=== PATIENT | female | born 1995 | race Caucasian/White ===

== ENCOUNTER 2017-08-07 09:49 | Emergency (ER) | payer SELFPAY ==
[~2017-08-07] VITALS: Wt 75.0 kg
[2017-08-07] MEDS ORDERED: ONDANSETRON (ODT) 4 MG TAB ODT STA (10:55)
[2017-08-07 11:43] LABS: ADD UMIC YES; UR ASCORBIC ACID NEGATIVE (NEGATIVE); UR BILIRUBIN (Dip) NEGATIVE (NEGATIVE); UR BLOOD (Dip) 2+ mg/dL (NEGATIVE); UR CLARITY CLEAR (CLEAR); UR COLOR YELLOW (YELLOW); UR GLUCOSE (Dip) NEGATIVE (NEGATIVE); UR KETONES (Dip) TRACE mg/dL (NEGATIVE); UR LEUKOCYTE ESTERASE (Dip) NEGATIVE Leu/ul (NEGATIVE); UR MUCUS FEW /HPF (NONE SEEN); UR NITRITE (Dip) NEGATIVE (NEGATIVE); UR RBC 9 /HPF (0-5); UR SPECIFIC GRAVITY (Dip) 1.017 (1.003-1.030); UR SQUAMOUS EPITHELIAL CELL FEW /HPF (FEW); UR TOTAL PROTEIN (Dip) 1+ mg/dl (NEGATIVE); UR UROBILINOGEN (Dip) NEGATIVE (NEGATIVE)
--- NOTE | 2017-08-07 11:43 | ERD ---
ER Documentation Chief Complaint Chief Complaint NAUSEA AND VOMITING WITH NO DIARRHEA WITH NO FEVERS. MILD ABDOMINAL HPI This is a 21-year-old female who presents emergency department today complaining of nausea with no vomiting. States that she had some dizziness earlier but has resolved. 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 States that she had her menstrual cycle beginning September. Denies any dysuria, fevers or chills, vomiting, abdominal pain denies passing out or losing consciousness. ROS All systems reviewed and are negative except as per history of present illness. Medications Home Meds Active Scripts Ondansetron Hcl* (Zofran*) 4 Mg Tablet, 4 MG PO Q6H for NAUSEA AND/OR VOMITING, #30 TAB Prov:RICCARDO MESSINA PA-C 08/07/17 Allergies Allergies: Coded Allergies: No Known Allergy (Unverified , 08/07/17) PMhx/Soc Medical and Surgical Hx: pt denies Medical Hx, pt denies Surgical Hx History of Surgery: No Anesthesia Reaction: No Hx Neurological Disorder: No Hx Respiratory Disorders: No Hx Cardiac Disorders: No Hx Psychiatric Problems: No Hx Miscellaneous Medical Probl: No Hx Alcohol Use: No Hx Substance Use: No Hx Tobacco Use: No Smoking Status: Never smoker Physical Exam Vitals Vital Signs Date Time Temp Pulse Resp B/P Pulse Ox O2 Delivery O2 Flow Rate FiO2 08/07/17 09:51 98.8 116 20 138/78 98 Physical Exam Const: NAD Head: Atraumatic Eyes: Normal Conjunctiva PERRLA. EOM intact. ENT: Ears TM Normal. Nose no drainage. Throat erythema no exudate. Neck: Full range of motion..~ No meningismus. Resp: Clear to auscultation bilaterally Cardio: Regular rate and rhythm, no murmurs Abd: Soft, non tender, non distended. Normal bowel sounds. NO tenderness at McBurney's Skin: No petechiae or rashes Back: No midline or flank tenderness Ext: No cyanosis, or edema Neur: Awake and alert. No gait ataxia Psych: Normal Mood and Affect Results 24 hrs Laboratory Tests Test 08/07/17 11:05 Urine Color YELLOW Urine Clarity CLEAR Urine pH 6.0 Urine Specific [place] 1.017 Urine Ketones TRACEmg/dL Urine Nitrite NEGATIVEmg/dL Urine Bilirubin NEGATIVEmg/dL Urine Urobilinogen NEGATIVEmg/dL Urine Leukocyte Esterase NEGATIVELeu/ul Urine Microscopic RBC 9/HPF Urine Microscopic WBC 2/HPF Urine Squamous Epithelial Cells FEW/HPF Urine Mucus FEW/HPF Urine Hemoglobin 2+mg/dL Urine Glucose NEGATIVEmg/dL Urine Total Protein 1+mg/dl Current Medications Medications (Trade) Dose Ordered Sig/Emre Route PRN Reason Start Time Stop Time Status Last Admin Dose Admin Ondansetron HCl (Zofran Odt) 4 mg ONCE STAT ODT 08/07/17 10:55 08/07/17 10:57 DC 08/07/17 11:10 Procedures/MDM This is a 21-year-old female who presented to the emergency department today complaining of nausea but no vomiting. It was difficult for me to get information from the patient however ultimately she decided that she had had some dizziness earlier but that had resolved by the time she came to the ER. Given patient's complaints of nausea I did check her urine and test UA is negative for infection test is negative Patient has no abdominal pain on physical exam. She indicated that her dizziness had resolved. I do not feel the patient requires further workup or imaging at this time. Patient was tachycardic at 116 however the remainder of her vital signs are stable. Patient had a syncope. Patient was given zofran here in the emergency department and was requesting to go home. She was given a prescription for Zofran for home. She was instructed to return for any persistent or worsening symptoms or any change in symptoms. At this time the patient is stable for discharge and outpatient management. Patient should follow up with their PCP in the next 1-2 days. They may return to the emergency department sooner for any persistent or worsening of symptoms. Patient understood and agreed with the plan. Departure Diagnosis: Primary Impression: Nausea and vomiting Vomiting type: unspecified Vomiting Intractability: non-intractable Qualified Code: R11.2 - Non-intractable vomiting with nausea, unspecified vomiting type Condition: RICCARDO Pisano PA-C Aug 07, 2017 11:43
[2017-08-07] MEDS ORDERED: ONDA4TAB8 PO (12:21)
== END 2017-08-07 12:30 | disposition home or self-care (01) ==
LOC: FTE 09:49
DX: R11.2 Nausea with vomiting, unspecified (principal)
CPT/HCPCS: 81001; 99283